=== PATIENT | male | born 1945 | race Caucasian/White ===

== ENCOUNTER → 2022-01-06 | Outpatient (CLI) | payer MEDICARE ==
[~2022-01-06] MED LIST: ALBUTEROL1.25 MG/3 INH; BUSPIRONE HCL15 MG PO; CATAPRES 0.1MG0.1 MG PO; ELIQUIS 5 MG TAB5 MG PO; FUROSEMIDE40 MG PO; HYDROXYZINE HCL25 MG PO; HYTRIN CAP 1 MG1 MG PO; IPRAT-ALBUT 0.5-3 ML INH; LACTULOSE10 GM/15 M PO; LASIX20 MG PO; LEVALBUTER0.31 MG/3 NEB; LOPRESSOR 25 MG25 MG PO; LORCET HD 10-31 EACH PO; MEGACE TAB 40 M40 MG PO; MIRTAZAPINE15 MG PO; ONCE DAILY1 EACH PO; PANTOPRAZOLE SO40 MG PO; POTASSIUM CHLO20 ME2 PO; REMERON15 M1 PO; SENNA-TIME S T1 EACH PO; SYMBICORT 80-41 INHA INH; TERAZOSIN HCL1 MG PO; TIROSINT88 MCG PO
== END ==
LOC: RT 11:10
DX: R06.02 Shortness of breath (principal)
CPT/HCPCS: 36600; 82803

== ENCOUNTER 2022-04-14 15:10 | Emergency (ER) | payer MEDICARE ==
[~2022-04-14 15:10] MED LIST changes: +BREZTRI AEROS10.7 GM INH; +BUDESONIDE-FO10.2 G1 INH; +DOCUSATE SODIU100 MG PO; +HUMIBID LA TAB600 MG PO; +IPRAT-ALBUT 0.5-3 ML NEB; +OMNICEF 300 MG300 MG PO
[2022-04-14 15:46] LABS: HEMOGLOBIN 15.5 gm/dl (14.0-17.5); RED BLOOD COUNT 5.15 M/UL (4.20-5.50); WHITE BLOOD COUNT 9.8 K/UL (4.5-11.0)
[2022-04-14 16:33] LABS: BUN/CREATININE RATIO 26 (0-10)
[2022-04-14] MEDS ORDERED: DOXYCYCLINE HY100 M2 PO (17:56)
== END 2022-04-14 20:00 | disposition home or self-care (01) ==
LOC: ER1 15:10
PROVIDERS: Emergency Medicine
DX: J44.1 Chronic obstructive pulmonary disease with (acute) exacerbation (principal); R00.1 Bradycardia, unspecified; Z20.822 Contact with and (suspected) exposure to COVID-19; I10 Essential (primary) hypertension; Z85.038 Personal history of other malignant neoplasm of large intestine
CPT/HCPCS: 0240U; 36600; 71045; 80053; 82550; 82553; 82803; 83605; 83880; 84484; 85025; 87040; 93005; 94640; 94664; 99285

== ENCOUNTER 2022-05-11 10:36 | Observation (INO) | payer MEDICARE ==
[~2022-05-11] VITALS: Ht 188 cm; Wt 66.7 kg
[~2022-05-11 10:36] MED LIST changes: +DOXYCYCLINE HY100 M2 PO; -REMERON15 M1 PO; +REMERON15 MG PO; +SYNTHROID88 MCG PO; -TIROSINT88 MCG PO
[2022-05-11 11:39] LABS: HEMOGLOBIN 14.3 gm/dl (14.0-17.5); RED BLOOD COUNT 4.91 M/UL (4.20-5.50); WHITE BLOOD COUNT 7.7 K/UL (4.5-11.0)
[2022-05-11 11:40] LABS: BUN/CREATININE RATIO 23 (0-10)
[2022-05-11] MEDS ORDERED: BUSPIRONE HCL15 MG PO (13:43)
[2022-05-11] MEDS ORDERED: FLONASE ALLER15.8 ML (13:43)
[2022-05-11] MEDS ORDERED: METOPROLOL TART25 MG PO (13:45)
[2022-05-11] MEDS ORDERED: ABILIFY5 MG PO (13:45)
[2022-05-11] MEDS ORDERED: SYMBICORT 80-10.2 GM INH (13:46)
[2022-05-12 04:25] LABS: HEMOGLOBIN 12.4 gm/dl (14.0-17.5)
[2022-05-12 04:33] LABS: RED BLOOD COUNT 3.18 M/UL (4.20-5.50)
[2022-05-12 04:37] LABS: BUN/CREATININE RATIO 21 (0-10)
[2022-05-13 07:08] LABS: HEMOGLOBIN 13.9 gm/dl (14.0-17.5)
[2022-05-13 07:10] LABS: RED BLOOD COUNT 4.57 M/UL (4.20-5.50); WHITE BLOOD COUNT 6.4 K/UL (4.5-11.0)
[2022-05-13 07:13] LABS: BUN/CREATININE RATIO 22 (0-10)
[2022-05-14 05:24] LABS: HEMOGLOBIN 13.9 gm/dl (14.0-17.5); RED BLOOD COUNT 4.55 M/UL (4.20-5.50); WHITE BLOOD COUNT 6.1 K/UL (4.5-11.0)
[2022-05-14 05:49] LABS: BUN/CREATININE RATIO 22 (0-10)
[2022-05-14] MEDS ORDERED: ATORVASTATIN CA20 MG PO (12:05)
[2022-05-14] MEDS ORDERED: MIRALAX17 GM PO (14:35)
== END 2022-05-14 17:32 | disposition home or self-care (01) ==
LOC: ER1 10:36 → CDU 12:51 → M/S 21:11
PROVIDERS: Emergency Medicine; Physician Assistant Medical; ADMIT Internal Medicine
DX: J18.9 Pneumonia, unspecified organism (principal); G93.40 Encephalopathy, unspecified; K22.2 Esophageal obstruction; I10 Essential (primary) hypertension; J44.9 Chronic obstructive pulmonary disease, unspecified; E03.9 Hypothyroidism, unspecified; C61 Malignant neoplasm of prostate; C18.9 Malignant neoplasm of colon, unspecified; J60 Coalworker's pneumoconiosis; R29.810 Facial weakness; R47.81 Slurred speech; Z87.891 Personal history of nicotine dependence; Z79.01 Long term (current) use of anticoagulants; Z79.899 Other long term (current) drug therapy
CPT/HCPCS: 36415; 70450; 70496; 70498; 70551; 71045; 80048; 80053; 81001; 82550; 82553; 83735; 84484; 85025; 85027; 85610; 85730; 87040; 92507; 92610; 93005; 93308; 94664; 94760; 96374; 97161; 97166; 97530-GP-CQ; 99285; G0378; J0696; Q9967

== ENCOUNTER 2022-07-01 11:11 | Emergency (ER) | payer MEDICARE ==
[~2022-07-01 11:11] MED LIST changes: +ABILIFY5 MG PO; +ATORVASTATIN CA20 MG PO; +FLONASE ALLER15.8 ML; +METOPROLOL TART25 MG PO; +MIRALAX17 GM PO; +SYMBICORT 80-10.2 GM INH
[2022-07-01 13:37] LABS: HEMOGLOBIN 14.7 gm/dl (14.0-17.5); RED BLOOD COUNT 5.03 M/UL (4.20-5.50); WHITE BLOOD COUNT 7.5 K/UL (4.5-11.0)
[2022-07-01 14:09] LABS: BUN/CREATININE RATIO 19 (0-10)
[2022-07-01 15:06] LABS: ADENOVIRUS F 40/41 Not Detected (Negative); ASTROVIRUS Not Detected (Negative); CAMPYLOBACTER Not Detected (Negative); CRYPTOSPORIDIUM Not Detected (Negative); E.COLI 0157 Not Detected (Negative); ENTAMOEBA HISTOLYTICA Not Detected (Negative); ENTEROAGGREGATIVE E.COLI (EAEC Not Detected (Negative); ENTEROPATHOGENIC E.COLI (EPEC) Not Detected (Negative); ENTEROTOXIGENIC E.COLI (ETEC) Not Detected (Negative); GIARDIA LAMBLIA Not Detected (Negative); NOROVIRUS GI/GII Not Detected (Negative); PLESIOMONAS SHIGELLOIDES Not Detected (Negative); ROTOVIRUS A Not Detected (Negative); SALMONELLA Not Detected (Negative); SAPOVIRUS Not Detected (Negative); SHIG/ENTEROINVAS.ECOLI (EIEC) Not Detected (Negative); SHIGA-LIK TOX.PRO.E.COLI (STEC Not Detected (Negative); VIBRIO Not Detected (Negative); VIBRIO CHOLERAE Not Detected (Negative); YERSINIA ENTEROCOLITICA Not Detected (Negative)
[2022-07-01 16:50] LABS: CLOSTRIDIUM DIFFICILE TOX A/B Not Detected (Negative)
[2022-07-01] MEDS ORDERED: ANUSOL HC SUPP1 SUPP PR (18:18)
== END 2022-07-01 18:25 | disposition home or self-care (01) ==
LOC: ER1 11:11
PROVIDERS: Physician Assistant; Preventive Medicine Occupational Medicine
DX: K62.89 Other specified diseases of anus and rectum (principal); J44.9 Chronic obstructive pulmonary disease, unspecified; I10 Essential (primary) hypertension; Z86.711 Personal history of pulmonary embolism; Z85.038 Personal history of other malignant neoplasm of large intestine; Z85.46 Personal history of malignant neoplasm of prostate; Z90.89 Acquired absence of other organs; Z90.49 Acquired absence of other specified parts of digestive tract; Z20.822 Contact with and (suspected) exposure to COVID-19
CPT/HCPCS: 0240U; 36600; 80053; 81001; 82009; 82140; 82803; 83540; 83550; 83605; 83690; 83735; 84100; 85025; 85652; 86140; 87086; 87186; 87507; 99284; Q9967